=== PATIENT | male | born 1995 | race Caucasian/White ===

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

== ENCOUNTER 2017-02-10 21:03 | Emergency (ER) | payer BC ==
[2017-02-10 21:12] VITALS: BP 136/98; PULSE 93; RESP 16; TEMP 98.4; O2SAT 96
== END 2017-02-10 22:04 | disposition left against medical advice (07) ==
DX: Z53.21 Procedure and treatment not carried out due to patient leaving prior to being seen by health care provider (principal)